=== PATIENT | female | born 1965 | race African-American/Black ===

== ENCOUNTER 2025-05-05 18:03 | Emergency (ER) | payer OTHER ==
[~2025-05-05] VITALS: Ht 170.2 cm; Wt 113.4 kg
[2025-05-05 18:20] VITALS: BP 142/75
[2025-05-05 19:00] LABS: PLATELET COUNT (AUTO) 347 K/uL (179-408); RED BLOOD CELL COUNT(AUTO) 4.20 MIL/uL (3.63-4.92); RED CELL DISTRIBUTION WIDTH 13.8 % (12.3-17.7); WHITE BLOOD COUNT (AUTO) 5.1 K/uL (3.8-11.8)
[2025-05-05 19:08] LABS: CREATININE 0.7 mg/dL (0.6-1.3); SODIUM SERUM 140.0 mmol/L (136-145); UREA NITROGEN, BLOOD 18.0 mg/dL (7-18)
[2025-05-05] MEDS: IV NS 1000 ML 1,000 ML IV ONE (19:22)
[2025-05-05] MEDS ORDERED: IV NORMAL SALINE 250 ML IV ONE (19:29)
[2025-05-05] MEDS ORDERED: IOHEXOL 300MG/ML 100 ML INFUS..BTL ONE (19:30)
[2025-05-05] MEDS ORDERED: SWABABLE VALVE TRANSFER SET EA MC ONE (19:30)
[2025-05-05] MEDS ORDERED: LACT10SO58 PO (21:18)
[2025-05-05 21:46] VITALS: BP 142/75; O2SAT 97
== END 2025-05-05 21:30 | disposition home or self-care (01) ==
LOC: ER 18:03
DX: D25.9 Leiomyoma of uterus, unspecified (principal); K59.00 Constipation, unspecified; K43.9 Ventral hernia without obstruction or gangrene; I10 Essential (primary) hypertension; Z85.3 Personal history of malignant neoplasm of breast; Z91.09 Other allergy status, other than to drugs and biological substances
CPT/HCPCS: 99285; 74177; 96360; 80048; 85025; 36415; Q9967; J7040; A4606; A4663